=== PATIENT | male | born 1945 ===

== ENCOUNTER 2022-01-13 10:24 | Outpatient (CLI) | payer OTHER ==
[~2022-01-13 10:24] MED LIST: INTESTINEX1 CA1 PO; LEVAQUIN750 MG PO; PROTONIX40 MG PO; ULTRACET PO
[2022-01-13] MEDS ORDERED: JENTADUETO 2.51 EAC2 PO (11:42)
[2022-01-13] MEDS ORDERED: GLIPIZIDE XL10 MG PO (11:42)
[2022-01-13] MEDS ORDERED: [UNRECOGNIZED DRUG - OTHER] PO (11:43)
[2022-01-13] MEDS ORDERED: COZAAR25 MG PO (11:43)
[2022-01-13] MEDS ORDERED: TOPROL XL50 M1 PO (11:44)
[2022-01-13] MEDS ORDERED: BREO IH (11:44)
[2022-01-13] MEDS ORDERED: SPIRIVA RESPIMAT4 GM IH (11:45)
[2022-01-13] MEDS ORDERED: FAMO PO (11:45)
[2022-01-13] MEDS ORDERED: FENOFI PO (11:46)
== END 2022-01-13 10:30 | disposition home or self-care (01) ==
LOC: LAB 10:24
PROVIDERS: ATTEND Orthopaedic Surgery Sports Medicine
DX: Z01.811 Encounter for preprocedural respiratory examination (principal); M54.50 Low back pain, unspecified; D68.9 Coagulation defect, unspecified

== ENCOUNTER 2022-01-16 05:00 | Day surgery (SDC) | payer OTHER ==
[~2022-01-16 05:00] MED LIST changes: +BREO IH; +COZAAR25 MG PO; +FAMO PO; +FENOFI PO; +GLIPIZIDE XL10 MG PO; +JENTADUETO 2.51 EAC2 PO; +SPIRIVA RESPIMAT4 GM IH; +TOPROL XL50 M1 PO; +[UNRECOGNIZED DRUG - OTHER] PO
[2022-01-16] MEDS ORDERED: BACTRIM DS TAB1 EACH PO ×2 (10:15)
[2022-01-16] MEDS ORDERED: ULTRACET PO ×2 (10:15)
== END 2022-01-16 13:30 | disposition home or self-care (01) ==
LOC: CIR.AMB 05:00
PROVIDERS: ATTEND Orthopaedic Surgery Sports Medicine
DX: S83.242A Other tear of medial meniscus, current injury, left knee, initial encounter (principal); M17.12 Unilateral primary osteoarthritis, left knee; Z88.0 Allergy status to penicillin; I10 Essential (primary) hypertension; Z95.1 Presence of aortocoronary bypass graft; I25.10 Atherosclerotic heart disease of native coronary artery without angina pectoris; I25.2 Old myocardial infarction; G47.33 Obstructive sleep apnea (adult) (pediatric); Z99.89 Dependence on other enabling machines and devices; Z87.891 Personal history of nicotine dependence; Z85.46 Personal history of malignant neoplasm of prostate; K74.69 Other cirrhosis of liver; K21.9 Gastro-esophageal reflux disease without esophagitis